=== PATIENT | female | born 1960 | race Caucasian/White ===

== ENCOUNTER 2018-04-18 12:50 | Day surgery (SDC) | END 2018-04-18 17:43 | disposition home or self-care (01) ==

== ENCOUNTER 2019-01-12 22:01 | Emergency (ER) | payer SELFPAY ==
[~2019-01-12] VITALS: Ht 157.5 cm; Wt 67.9 kg
[~2019-01-12 22:01] MED LIST: GARLIC; GLUCOSAMINE; OMEPRAZOLE
[2019-01-12 22:11] VITALS: BP 121/79; PULSE 61; RESP 19; Ht 157.5 cm; Wt 67.9 kg
== END 2019-01-12 22:45 | disposition left against medical advice (07) ==
LOC: FTE 22:01 → E/R 22:45
DX: Z53.21 Procedure and treatment not carried out due to patient leaving prior to being seen by health care provider (principal)